=== PATIENT | male | born 1985 | race Caucasian/White ===

== ENCOUNTER 2017-03-23 11:23 | Emergency (ER) | payer OTHER ==
[2017-03-23 12:40] VITALS: BP 110/58
--- NOTE | 2017-03-23 22:24 | ED Physician Documentation ---
General Adult - HISTORIAN Historian: patient - HPI Stated Complaint: pain left groin and tooth pain Chief Complaint: General Adult Additional Information: long standing inguinal hernia, hurting more last 48 hours, long standing dental caries Onset: days ago (2) Timing: still present Severity: moderate Further Comments: no - ROS CONST: no problems EYES/ENT: none CVS/RESP: none GI/: none MS/SKIN/LYMPH: none NEURO/PSYCH: denies: headache, fainting, dizziness, tingling, numbness, difficulty walking, difficulty with speech, anxiety, depression - PAST HX Past History: other (hernia) Other History: other (dental caries) Surgeries/Procedures: none Immunizations: other Allergies/Adverse Reactions: Allergies Allergy/AdvReac Type Severity Reaction Status Date / Time No Known Allergies Allergy Verified 03/23/17 11:55 Home Medications: Ambulatory Orders Medication Instructions Recorded NK [NK] 03/17/16 - SOCIAL HX Smoking History: cigarettes Alcohol Use: none Drug Use: none - FAMILY HX Family History: No - VITAL SIGNS Vital Signs: Vital Signs Temp Pulse Resp BP Pulse Ox 99.9 F H 78 20 110/58 98 03/23/17 11:25 03/23/17 12:38 03/23/17 12:38 03/23/17 12:38 03/23/17 12:38 - REVIEWED ASSESSMENTS Nursing Assessment Reviewed: Yes Vitals Reviewed: Yes Progress - Results/Orders Results/Orders: no testing ordered - Progress Progress: Surgery contacted. They will call pt. with appt. for hernia eval./repair. Critical Care Note - Critical Care Note Total Time (mins): 0 ED Results Lab/Radiology - Lab Results Lab Results: no testing ordered - Radiology Radiology Impressions: none ordered General Adult Physical Exam - PHYSICAL EXAM GENERAL APPEARANCE: moderate distress EENT: eye inspection normal, pharynx normal, no signs of dehydration, RORY, no nystagmus, TM's nml, other (multiple dental caries) NECK: normal inspection, thyroid normal, supple RESPIRATORY: no resp distress, chest non-tender, breath sounds normal CVS: reg rate & rhythm, heart sounds normal, equal pulses, no murmur ABDOMEN: soft, no organomegaly, normal bowel sounds, no distension, non-tender, other (left inguinal hernia - reduceable tender mass left scrotum) BACK: normal inspection, no CVA tenderness SKIN: warm/dry, normal color EXTREMITIES: non-tender, normal range of motion, no evidence of injury, no edema NEURO: oriented X3, CN's nml as tested, motor nml, sensation nml, mood/affect nml Discharge Clincal Impression: Left inguinal hernia Referrals: Primary Doctor,No [Primary Care Provider] - 2 Days Home Medications: Ambulatory Orders NK [NK] 03/17/16 Comments: discharged with scripts for tramadol and amoxicillin Condition: Stable Disposition: 01 HOME, SELF-CARE Decision to Admit: NO Decision Time: 12:30
== END 2017-03-23 12:38 | disposition home or self-care (01) ==
LOC: ED 11:23
DX: K40.90 Unilateral inguinal hernia, without obstruction or gangrene, not specified as recurrent (principal)
CPT/HCPCS: 96372; 99283

== ENCOUNTER 2017-10-11 13:50 | Emergency (ER) | payer OTHER ==
[2017-10-11 14:22] LABS: BASOPHILS % 0.6 (0.0-1.5); MEAN CORPUSCULAR HEMOGLOBIN 31.2 pg (28.0-34.0); MONOCYTES % 3.6 % (0.0-11.0); NEUTROPHILS # 6.7 # k/uL (1.4-7.7)
[2017-10-11 14:38] LABS: eGFR (African) > 60; eGFR (Non-African) > 60
--- NOTE | 2017-10-11 14:43 | Diagnostic Imaging Report ---
BRANDEN STOREY (LUIS MIGUEL) - ER [facility] [id number] [facility].[address] [address] Report Submission Date: Oct 11, 2017 2:31:58 PM POST MANAGER Patient Study Name: OLYA DUNN Date: Oct 11, 2017 2:19:58 PM POST MANAGER Modality Type: CR Gender: M Description: CHEST : 89 Institution: [facility] Physician: BRANDEN STOREY) - ER Examination: PA and lateral chest. History: Evaluate lung agrawal. Findings: PA lateral chest demonstrate a normal cardiac and mediastinal silhouette. No focal infiltrate. No blunting of the costophrenic margins. Osseous structures are appropriate for age. Impression: No acute pulmonary process. Electronically signed on Oct 11, 2017 2:31:58 PM POST MANAGER by: Babak CARL
[2017-10-11] MEDS ORDERED: 0.9 % SODIUM CHLORIDE 1,000 ML IV ONE ×2 (14:49→14:52)
[2017-10-11 15:19] LABS: APPEARANCE,URINE Clear (CLEAR); COLOR,URINE Yellow (YELLOW); OCCULT BLOOD,URINE Trace-intact (NEGATIVE); UROBILINOGEN URINE 0.2 Eu (0.2-1.0)
[2017-10-11 15:21] LABS: AMPHETAMINE NEGATIVE ng/mL (<1000); BARBITURATES NEGATIVE ng/mL (<200); CANNABINOIDS NEGATIVE ng/mL (<50); COCAINE NEGATIVE ng/mL (<300); METHAMPHETAMINE NEGATIVE ng/mL (<1000)
[2017-10-11 15:31] LABS: SPERM,URINE PRESENT (NEGATIVE)
--- NOTE | 2017-10-11 15:38 | ED Physician Documentation ---
General Adult - HISTORIAN Historian: patient - HPI Stated Complaint: just does not feel good Chief Complaint: General Adult Further Comments: yes (32 year old male presents with complaint of "not feeling well", c/o sinus pressure. Reports taking "sinus medicine" yesterday. Patient dozing off during ROS. [place] historian.) - ROS CONST: chills EYES/ENT: none CVS/RESP: none GI/: none MS/SKIN/LYMPH: neck pain (chronic) NEURO/PSYCH: headache - PAST HX Past History: none Surgeries/Procedures: other (fusion C-spine 03/2017) Allergies/Adverse Reactions: Allergies Allergy/AdvReac Type Severity Reaction Status Date / Time No Known Allergies Allergy Verified 10/11/17 14:21 Home Medications: Ambulatory Orders Medication Instructions Recorded Benzonatate [Tessalon Perles] 200 mg PO TID PRN #30 capsule 10/11/17 - SOCIAL HX Smoking History: cigarettes - FAMILY HX Family History: No - VITAL SIGNS Vital Signs: Vital Signs Temp Pulse Resp BP Pulse Ox 99.4 F 126 H 20 97/68 97 10/11/17 13:50 10/11/17 13:50 10/11/17 13:50 10/11/17 13:50 10/11/17 13:50 - REVIEWED ASSESSMENTS Nursing Assessment Reviewed: Yes Vitals Reviewed: Yes Progress - Progress Progress: Patient sleeping in room, work up essentially negative. 1L NS given while in ER. VS remain stable. Patient states he feels better after IV fluids, more awake. ED Results Lab/Radiology - Lab Results Lab Results: Lab Results 10/11/17 10/11/17 10/11/17 15:15 15:15 14:15 WBC RBC Hgb Hct MCV MCH MCHC RDW Plt Count Neut % (Auto) Lymph % (Auto) [place] % (Auto) Eos % (Auto) Baso % (Auto) Neut # (Auto) Lymph # (Auto) [place] # (Auto) Eos # (Auto) Baso # (Auto) Reactive Lymphs % Reactive Lymphs # Sodium 135 mmol/L L mmol/L (136-145) Potassium 4.1 mmol/L mmol/L (3.5-5.1) Chloride 99 mmol/L mmol/L (98-107) Carbon Dioxide 28 mmol/L mmol/L (22-30) BUN 13 mg/dL mg/dL (9-20) Creatinine 1.00 mg/dL mg/dL (0.66-1.25) Estimated Creat Clear 103 Est GFR ( Amer) > 60 (60 - ) Est GFR (Non-Af Amer) > 60 (60 - ) Glucose 97 mg/dL mg/dL (74-106) Calcium 9.2 mg/dL mg/dL (8.4-10.2) Total Bilirubin < 0.1 mg/dL L mg/dL (0.2-1.3) AST 19 U/L U/L (15-46) ALT 29 U/L U/L (13-69) Alkaline Phosphatase 53 U/L U/L (38-126) Total Protein 6.9 g/dL g/dL (6.3-8.2) Albumin 3.9 g/dL g/dL (3.5-5.0) Urine Color Yellow (YELLOW) Urine Appearance Clear (CLEAR) Urine pH 8.0 (5.0 - 8.0) Ur Specific [place] 1.025 (1.010-1.030) Urine Protein 1+ mg/dL H mg/dL (NEGATIVE) Urine Ketones Negative mg/dL mg/dL (NEGATIVE) Urine Occult Blood Trace-intact (NEGATIVE) Urine Nitrite Negative (NEGATIVE) Urine Bilirubin Negative (NEGATIVE) Urine Urobilinogen 0.2 Eu Eu (0.2-1.0) Ur Leukocyte Esterase Negative (NEGATIVE) Urine RBC 2-5 H (0-2 HPF) Urine WBC 0-2 (0-5 HPF) Urine Bacteria Few H (NEGATIVE) Urine Sperm Present H (NEGATIVE) Urine Glucose Negative mg/dL mg/dL (NEGATIVE) Opiates Screen Negative ng/mL ng/mL (<300) Methadone Screen Negative ng/mL ng/mL (<300) Ur Propoxyphene Screen Negative ng/mL ng/mL (<300) POC Urine Barbiturates Negative ng/mL ng/mL (<200) Tricyclic Antidepress Negative ng/mL ng/mL (<300) Amphetamines Screen Negative ng/mL ng/mL (<1000) POC Ur Methamphetamine Negative ng/mL ng/mL (<1000) Benzodiazepines Screen Negative ng/mL ng/mL (<300) Cocaine Screen Negative ng/mL ng/mL (<300) Marijuana (THC) Screen Negative ng/mL ng/mL (<50) 10/11/17 14:15 WBC 9.30 K/ul K/ul (4.00-12.00) RBC 4.69 M/ul M/ul (3.90-5.20) Hgb 14.6 g/dL g/dL (12.0-18.0) Hct 44.5 % % (37.0-53.0) MCV 95.0 fl fl (80.0-100.0) MCH 31.2 pg pg (28.0-34.0) MCHC 32.8 g/dL g/dL (30.0-36.0) RDW 13.0 % % (11.3-14.3) Plt Count 231 K/mm3 K/mm3 (130-400) Neut % (Auto) 72.4 % % (39.0-79.0) Lymph % (Auto) 18.3 % % (16.0-50.0) [place] % (Auto) 3.6 % % (0.0-11.0) Eos % (Auto) 3.0 % % (0.0-6.8) Baso % (Auto) 0.6 (0.0-1.5) Neut # (Auto) 6.7 # k/uL # k/uL (1.4-7.7) Lymph # (Auto) 1.7 # k/uL # k/uL (0.6-4.0) [place] # (Auto) 0.3 # k/uL # k/uL (0.0-0.9) Eos # (Auto) 0.3 # k/uL # k/uL (0.0-0.6) Baso # (Auto) 0.1 # k/uL # k/uL (0.0-0.5) Reactive Lymphs % 2.1 % % (0.0-5.0) Reactive Lymphs # 0.2 # k/uL # k/uL (0.0-0.8) Sodium Potassium Chloride Carbon Dioxide BUN Creatinine Estimated Creat Clear Est GFR ( Amer) Est GFR (Non-Af Amer) Glucose Calcium Total Bilirubin AST ALT Alkaline Phosphatase Total Protein Albumin Urine Color Urine Appearance Urine pH Ur Specific [place] Urine Protein Urine Ketones Urine Occult Blood Urine Nitrite Urine Bilirubin Urine Urobilinogen Ur Leukocyte Esterase Urine RBC Urine WBC Urine Bacteria Urine Sperm Urine Glucose Opiates Screen Methadone Screen Ur Propoxyphene Screen POC Urine Barbiturates Tricyclic Antidepress Amphetamines Screen POC Ur Methamphetamine Benzodiazepines Screen Cocaine Screen Marijuana (THC) Screen - Orders Orders: ED Orders Category Date Time Status Place IV Lock 1T Care 10/11/17 14:01 Active CHEST 2 VIEW [CHEST P.A.&LAT 2 VIEWS] [RAD] Stat Exams 10/11/17 Completed CBC/PLATELET/DIFF Stat Lab 10/11/17 14:15 Completed CMP Stat Lab 10/11/17 14:15 Completed INFLUENZA A&B Stat Lab 10/11/17 14:01 Uncollected UA W/MICRO IF INDICATED Stat Lab 10/11/17 15:15 Completed Urine drug screen [DRUG SCREEN URINE MEDICAL ONLY] Stat Lab 10/11/17 15:15 Completed 0.9 % Sodium Chloride [Normal Saline] 1,000 ml Med 10/11/17 14:49 Discontinued IV .STK-MED 0.9 % Sodium Chloride [Normal Saline] 1,000 ml Med 10/11/17 14:52 Discontinued IV NOW General Adult Physical Exam - PHYSICAL EXAM GENERAL APPEARANCE: sleepy EENT: eye inspection normal, ENT inspection normal, pharynx normal, no signs of dehydration, RORY, no nystagmus, TM's nml RESPIRATORY: no resp distress, chest non-tender, breath sounds normal CVS: reg rate & rhythm, heart sounds normal, equal pulses, no murmur, no gallop , PMI nml, no JVD, no friction rub, 24 ABDOMEN: soft, no organomegaly, normal bowel sounds, no abdominal bruit, no distension BACK: normal inspection, no CVA tenderness SKIN: normal color, warm/dry, NR, INT, PAL, DR EXTREMITIES: non-tender, normal range of motion, no evidence of injury, no edema , J, BLOCK CAPTAIN NEURO: oriented X3, CN's nml as tested, motor nml, sensation nml, mood/affect nml Discharge Clincal Impression: Viral syndrome Fatigue Qualifiers: Fatigue type: unspecified Qualified Code(s): R53.83 - Other fatigue Prescriptions: Benzonatate [Tessalon Perles] 200 mg PO TID PRN #30 capsule PRN Reason: Cough Referrals: Primary Doctor,No [Primary Care Provider] - 2 Days Additional Instructions: Rest Cough drops as needed for cough and sore throat. Increase your fluid intake juices, hot tea, non-caffeinated beverages Vitamin C may be helpful in decreasing the length of your cold. Use a humidifier in the room where you sleep. You can also sit in a steam filled bathroom 1-2 times a day. Tylenol every 4 hours 650mg -1000mg (do not exceed 4000mg in 24 hours) as needed for fever, pain and body aches. Alternate with Ibuprofen Ibuprofen 600-800mg every 6 hours as needed for fever, pain and body aches. See your primary care doctor if your symptoms become worse or do not improve in the next 2-3 days. Condition: Stable Disposition: 01 HOME, SELF-CARE Decision to Admit: NO Decision Time: 15:42
[2017-10-11 16:10] VITALS: BP 99/70
== END 2017-10-11 15:54 | disposition home or self-care (01) ==
LOC: ED 13:50
DX: B34.9 Viral infection, unspecified (principal); R53.83 Other fatigue
CPT/HCPCS: 71020; 80053; 80377; 81002; 85025; 96360; 99283; G0481; S1016

== ENCOUNTER 2018-02-24 15:50 | Emergency (ER) | payer SELFPAY ==
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
[2018-02-24 16:11] VITALS: BP 109/72
== END 2018-02-24 16:28 | disposition home or self-care (01) ==
LOC: ED 15:50
DX: M54.2 Cervicalgia (principal)
CPT/HCPCS: 99282

== ENCOUNTER 2018-04-11 19:30 | Emergency (ER) | payer OTHER ==
[2018-04-11] MEDS ORDERED: NEOMYCIN/BACITRACIN/POLYMYXINB 1 EACH OINT.PACK TP ONE (19:58)
[2018-04-11] MEDS ORDERED: DEXTROSE 5 % AND 0.9 % NACL 1,000 ML IV SCH (20:00)
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
[2018-04-11 20:21] VITALS: BP 118/72
== END 2018-04-11 20:35 | disposition home or self-care (01) ==
LOC: ED 19:30
DX: S90.81 Abrasion of foot (principal); S80.811A Abrasion, right lower leg, initial encounter; X58.XXXA Exposure to other specified factors, initial encounter; Y93.9 Activity, unspecified; Y92.9 Unspecified place or not applicable; Y99.9 Unspecified external cause status
CPT/HCPCS: 99282

== ENCOUNTER 2018-08-12 12:26 | Emergency (ER) | payer OTHER ==
--- NOTE | 2018-08-12 12:29 | ED Physician Documentation ---
General Adult - HPI Stated Complaint: fingernail injury from dog bite Chief Complaint: Animal Bite Onset: hours (1) Timing: still present Further Comments: yes (he states the two dogs were fighting and he tried to choke one dog and his finger went in the mouth and the tooth pulled at his fingernail.) - ROS CONST: no problems - PAST HX Past History: none Surgeries/Procedures: other (hernia surgery last week ) Immunizations: UTD Allergies/Adverse Reactions: Allergies Allergy/AdvReac Type Severity Reaction Status Date / Time No Known Allergies Allergy Verified 08/12/18 12:34 - SOCIAL HX Smoking History: cigarettes Alcohol Use: occasionally (he had two shots of whiskey and oxycontin before he came to ER) Drug Use: none - FAMILY HX Family History: No - VITAL SIGNS Vital Signs: Vital Signs Temp Pulse Resp BP Pulse Ox 118/72 04/11/18 20:35 - REVIEWED ASSESSMENTS Nursing Assessment Reviewed: Yes Vitals Reviewed: Yes Progress - Progress Progress: 1230: 4 cc 2% lidocaine used and fingernail removed easily DG General Adult Physical Exam - PHYSICAL EXAM GENERAL APPEARANCE: mild distress EENT: eye inspection normal NECK: normal inspection RESPIRATORY: no resp distress, chest non-tender, breath sounds normal CVS: reg rate & rhythm, heart sounds normal ABDOMEN: soft SKIN: warm/dry, other (right hand 3rd finger with partial evolusion on nail. two small punture wounds. Dog is his own dog known UTD immunizations ) EXTREMITIES: tenderness (finger right hand 3rd finger ) NEURO: oriented X3 Discharge Clincal Impression: Dog bite Qualifiers: Encounter type: initial encounter Qualified Code(s): W54.0XXA - Bitten by dog, initial encounter Referrals: Primary Doctor,No [Primary Care Provider] - 2 Days Comments: 1. Keep area clean and dry 2. Notify PCP in 2- 4 days for re check of wound 3. Tylenol or Ibuprofen as directed for pain 4. Return to ER for any concerns Condition: Stable Disposition: 01 HOME, SELF-CARE Decision to Admit: NO Date of Decison to Admit: 08/12/18 Decision Time: 13:28
[2018-08-12 13:43] VITALS: BP 112/73
[2018-08-12] MEDS ORDERED: LIDOCAINE HCL/PF 2% 100 MG/5 ML VIAL IJ ONE (13:47)
== END 2018-08-12 13:40 | disposition home or self-care (01) ==
LOC: ED 12:26
DX: S61.304A Unspecified open wound of right ring finger with damage to nail, initial encounter (principal); W54.0XXA Bitten by dog, initial encounter; Y92.9 Unspecified place or not applicable; Y93.9 Activity, unspecified; Y99.9 Unspecified external cause status
CPT/HCPCS: 11730; 96372; 99282; J2001